=== PATIENT | male | born 1990 | race Caucasian/White ===

== ENCOUNTER 2017-04-08 18:41 | Emergency (ER) | payer OTHER ==
[2017-04-08 19:20] VITALS: BP 136/87
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
--- NOTE | 2017-04-08 20:34 | RAD ---
INDICATION: Neck injury. Pain. COMPARISON: None TECHNIQUE: Noncontrast axial source images was performed from the skull base to the thoracic inlet. Coronal and and sagittal reformatted images were generated. FINDINGS: Vertebrae: There is no fracture or acute focal bony lesion. Alignment: The craniocervical junction appears normal. The cervical vertebrae are normally aligned. Central Canal: There are no significant CT abnormalities of the central canal or foramina. MR imaging is a more sensitive method to evaluate the canal and foramina. Intervertebral disc spaces: The disc spaces are maintained. Brain: The visualized brain appears unremarkable. Soft tissues: The visualized soft tissue elements of the neck are unremarkable. The prevertebral soft tissues appear normal. The lung apices are clear. IMPRESSION: NEGATIVE EXAMINATION.
--- NOTE | 2017-04-08 20:34 | RAD ---
INDICATION: Intracranial injury COMPARISON: None TECHNIQUE: Noncontrast axial source images were acquired from the skull base to the vertex. FINDINGS: Ventricles/sulci: The ventricles and cisterns are normal in size and configuration for age. Brain parenchyma: There is no focal parenchymal finding, evidence of intracranial mass, or intracranial mass effect. Intracranial hemorrhage:None. Extra-axial spaces: There are no abnormal extra axial fluid collections or evidence of extra-axial mass. Calvarium: There is no calvarial fracture or other calvarial abnormality. Scalp: There is no evidence of scalp or extracalvarial soft tissue abnormality. Paranasal sinuses/mastoid: The paranasal sinuses and mastoid air cells are clear. Other: None. IMPRESSION: NEGATIVE EXAMINATION
[2017-04-08] MEDS ORDERED: Cyclobenzaprine TAB* 10 MG PO ONE (20:43)
== END 2017-04-08 20:49 | disposition home or self-care (01) ==
LOC: UCCORT 18:41
DX: R51 Headache (principal); M62.830 Muscle spasm of back; S13.4XXA Sprain of ligaments of cervical spine, initial encounter; V47.5XXA Car driver injured in collision with fixed or stationary object in traffic accident, initial encounter; Y93.9 Activity, unspecified; Y92.410 Unspecified street and highway as the place of occurrence of the external cause; Z88.6 Allergy status to analgesic agent
CPT/HCPCS: 70450; 72125; 99211; A9270-GY; G0463

== ENCOUNTER 2018-04-28 21:23 | Emergency (ER) | payer SELFPAY ==
[2018-04-28] MEDS ORDERED: Albuterol HFA INHALER* 8 gm MDI INH ONE ×2 (22:10→22:23)
[2018-04-28] MEDS ORDERED: predniSONE TAB* 20 MG PO ONE (22:10)
[2018-04-28] MEDS ORDERED: Acetaminophen TAB* 325 MG PO ONE (22:10)
--- NOTE | 2018-04-28 22:10 | ED ---
Respiratory - HPI Summary HPI Summary: pt presents for a 2 week hx of cough, sore throat and a mild ear ache. he denies any sick contacts. he denies any smoking. - History of Current Complaint Stated Complaint: COUGH Hx Obtained From: Patient Onset/Duration: Gradual Onset Initial Severity: Moderate Current Severity: Mild Character: Wheezing, Cough (Nonproductive) Sputum Amount: None Alleviating Factor(s): Nothing Associated Signs and Symptoms: Sinus Infection, Wheezing, Nasal Congestion, Sinus Discomfort - Risk Factors Status Asthmaticus Risk Factors: Negative Pulmonary Embolism Risk Factors: Negative - Allergy/Home Medications Allergies/Adverse Reactions: Allergies Allergy/AdvReac Type Severity Reaction Status Date / Time MS Diphenhydramine Allergy Severe swelling Verified 04/28/18 22:05 [From Benadryl] of body not throat,hives MS Ibuprofen [Ibuprofen] Allergy Severe Swelling Verified 04/28/18 22:05 of body but not throat, hives Home Medications: Home Medications guaiFENesin ER TAB [Mucinex*] 600 mg PO BID PRN 04/28/18 [History Confirmed 08/15] PMH/Surg Hx/FS Hx/Imm Hx Previously Healthy: Yes Endocrine/Hematology History: Denies: Hx Anticoagulant Therapy Cardiovascular History: Denies: Hx Aneurysm Respiratory History: Denies: Hx Asthma - Surgical History Surgery Procedure, Year, and Place: T&A. left ankle fx tibia Infectious Disease History: Denies: Hx Hepatitis, Traveled Outside the [place] in Last 30 Days - Family History Known Family History: Positive: None - Social History Alcohol Use: Daily Alcohol Amount: couple cans of beer daily Substance Use Type: Reports: None Smoking Status (MU): Never Smoked Tobacco Review of Systems Constitutional: Negative Eyes: Negative Positive: Sore Throat Cardiovascular: Negative Positive: Cough. Negative: Shortness Of Breath Negative: Abdominal Pain, Vomiting, Diarrhea, Nausea Genitourinary: Negative Musculoskeletal: Negative Skin: Negative Positive: Headache. Negative: Weakness, Paresthesia, Numbness, Syncope, Slurred Speech Psychological: Normal All Other Systems Reviewed And Are Negative: No Physical Exam Triage Information Reviewed: Yes Vital Signs Reviewed: Yes Appearance: Positive: Well-Appearing, No Pain Distress, Well-Nourished Skin: Positive: Warm, Dry Eyes: Positive: Normal, EOMI, MAYELA ENT: Positive: TM dull Neck: Positive: Supple, Nontender Respiratory/Lung Sounds: Positive: Breath Sounds Present, Wheezes - very scant, mild Cardiovascular: Positive: Normal, RRR Abdomen Description: Positive: Nontender, Soft Bowel Sounds: Positive: Present Musculoskeletal: Positive: Normal, Strength/ROM Intact, Limited @ Neurological: Positive: Normal, Sensory/Motor Intact, CN Intact II-III Psychiatric: Positive: Normal AVPU Assessment: Alert Disposition - Course Course Of Treatment: pt will be given prednisone, tylenol, zpak, albuterol inhaler, and spacer for his uri. pt will also be given a work excuse for the next 3 days. pt was instructed to f/u with pcp. mom was present during this. - Diagnoses Provider Diagnoses: Upper respiratory infection Discharge - Sign-Out/Discharge Documenting (check all that apply): Patient Departure All imaging exams completed and their final reports reviewed: No Studies - Discharge Plan Condition: Stable Disposition: HOME Prescriptions: Albuterol HFA INHALER* [Ventolin HFA Inhaler*] 2 puff INH Q4H PRN #1 mdi MDD 6 PRN Reason: Wheezing Azithromyxin ANTOINETTE (NF) [Z-Antoinette (Zithromax) 250 mg tabs #6] 2 tab PO .TODAY, THEN 1 DAILY #6 tab predniSONE TAB* [Deltasone 20 MG TAB*] 60 mg PO DAILY #12 tab Patient Education Materials: Upper Respiratory Infection (ED) Forms: *Work Release Referrals: Robert Emery DO [Primary Care Provider] - Additional Instructions: take the prednisone, inhaler with spacer, zpak as instructed. take tylenol for pain. return if worse or any new symptoms. follow up with your primary care physician. - Billing Disposition and Condition Condition: STABLE Disposition: Home
[2018-04-28 22:12] VITALS: BP 127/71
== END 2018-04-28 22:43 | disposition home or self-care (01) ==
LOC: UCCORT 21:23
DX: J06.9 Acute upper respiratory infection, unspecified (principal); Z88.6 Allergy status to analgesic agent; Z88.8 Allergy status to other drugs, medicaments and biological substances
CPT/HCPCS: 99213; A9270-GY; G0463; J7512

== ENCOUNTER 2019-02-18 19:33 | Emergency (ER) | payer SELFPAY ==
[2019-02-18 20:42] VITALS: BP 150/86
--- NOTE | 2019-02-18 20:51 | UC ---
UC General HPI - HPI Summary HPI Summary: Per dietary aide: "Pt has had chills, neck pain, headache, slight sore throat, cough, no energy for the past 2 days. " -Mom came in when discussing plan. -MCCOY & neck pain are severe. hasnt taken anything for it. cant turn his head or look up or down. -denies mosquito and tic bites. -no rash -+slight photophobia -no n/v/d. -no w/n/t. -no known illnesses except for the child that his GF babysits. GF is not sick. - History of Current Complaint Chief Complaint: UCGeneralIllness Stated Complaint: FEVER,CHILLS,BODY ACHES Time Seen by Provider: 02/18/19 20:47 Pain Intensity: 97 - Allergy/Home Medications Allergies/Adverse Reactions: Allergies Allergy/AdvReac Type Severity Reaction Status Date / Time diphenhydramine Allergy Severe SWELLING Verified 02/18/19 20:43 [From Benadryl] OF BODY, HIVES ibuprofen Allergy Severe SWELLING Verified 02/18/19 20:43 OF BODY, HIVES Home Medications: Home Medications NK [No Home Medications Reported] 02/18/19 [History Confirmed 02/18/19] PMH/Surg Hx/FS Hx/Imm Hx Previously Healthy: Yes Other History Of: Negative For: Anticoagulant Therapy - Surgical History Surgical History: Yes Surgery Procedure, Year, and Place: T&A. left ankle fx tibia - Family History Known Family History: Positive: Hypertension - Social History Alcohol Use: Daily Alcohol Amount: couple cans of beer daily Substance Use Type: None Smoking Status (MU): Never Smoked Tobacco Review of Systems All Other Systems Reviewed And Are Negative: Yes Constitutional: Positive: Fever, Chills, Fatigue Skin: Positive: Negative. Negative: Rash Eyes: Positive: Photophobia ENT: Positive: Sore Throat. Negative: Sinus Pain/Tenderness Respiratory: Positive: Negative. Negative: Shortness Of Breath, Cough Cardiovascular: Positive: Negative Gastrointestinal: Positive: Negative. Negative: Vomiting, Diarrhea Genitourinary: Positive: Negative Motor: Positive: Negative Neurovascular: Negative: Decreased Sensation, Decreased Pulses Musculoskeletal: Positive: Decreased ROM, Myalgia Neurological: Positive: Headache. Negative: Weakness, Paresthesia, Numbness Psychological: Positive: Negative Is Patient Immunocompromised?: No Physical Exam Triage Information Reviewed: Yes Appearance: Ill-Appearing - lying on exam table. can't turn head. Vital Signs: Initial Vital Signs Temp 99.2 F 02/18/19 20:38 Pulse 104 02/18/19 20:38 Resp 16 02/18/19 20:38 BP 150/86 02/18/19 20:38 Pulse Ox 97 02/18/19 20:38 Vital Signs Reviewed: Yes Eye Exam: Normal ENT Exam: Normal ENT: Positive: Pharynx normal, TMs normal, Uvula midline Dental Exam: Normal Neck: Positive: No Lymphadenopathy, Nuchal Rigidity - unable to turn b/l, flex or extend. tender over base of skull. tender over b/l shoulders., Enlarged Nodes @ Respiratory Exam: Normal Respiratory: Positive: Lungs clear, Normal breath sounds, No respiratory distress, No accessory muscle use Cardiovascular: Positive: Tachycardia Abdominal Exam: Normal Abdomen Description: Positive: Nontender, Soft Neurological Exam: Normal Psychological Exam: Normal Skin: Negative: Rashes Course/Dx - Course Course Of Treatment: -evaluation by ER recommended. likely needs CT/MRI of neck and brain w/ stat labs. He is reluctant but understands potential of life threathening and agrees to go. Mom reassures me that she will be driving him and make sure he goes. declines ambulance AMA. - Differential Dx - Multi-Symptom Differential Diagnoses: Other - meningitis - Diagnoses Provider Diagnosis: Headache, Neck pain Discharge - Sign-Out/Discharge Documenting (check all that apply): Patient Departure All imaging exams completed and their final reports reviewed: No Studies - Discharge Plan Condition: Fair Disposition: TRANS HIGHER LVL OF CARE FAC Referrals: Robert Emery DO [Primary Care Provider] - Additional Instructions: Please go directly to the [facility]. DO not stop anywhere. Your mom should drive you. - Billing Disposition and Condition Condition: FAIR Disposition: Trans Higher Lvl of Care Fac
[2019-02-18] MEDS ORDERED: Acetaminophen TAB* 325 MG PO ONE (21:02)
== END 2019-02-18 21:10 | disposition short-term general hospital (02) ==
LOC: UCCORT 19:33
DX: M54.2 Cervicalgia (principal); R51 Headache
CPT/HCPCS: 99212; A9270-GY; G0463